=== PATIENT | female | born 2000 | race Hispanic/Latino ===

== ENCOUNTER 2021-02-20 20:01 | Emergency (ER) | payer OTHER ==
--- OUTSIDE RECORDS SUMMARY | 2021-02-20 20:04 | XMS REPORT | Continuity of Care Document ---
:2000 Author Organization [facility] t Address Formerly [facility] [place] [id number] Care Team Providers Name Role Phone Unavailable Unavailable Unavailable Problems This patient has no known problems. Allergies, Adverse Reactions, Alerts This patient has no known allergies or adverse reactions. Social History Smoking Status Start Date Stop Date Source Never Smoker [facility] Medications This patient has no known medications. Vital Signs Vital Name Observation Time Observation Value Comments Source Body Weight 2019-11-03 00:00:00 134 [lb_av] [facility] BP Diastolic 2019-11-03 00:00:00 80 mm[Hg] [facility] Height 2019-11-03 00:00:00 62 [in_i] [facility] BMI (Body Mass 2019-11-03 00:00:00 24.5 kg/m2 [facility]) [facility] BP Systolic 2019-11-03 00:00:00 104 mm[Hg] [facility] Procedures This patient has no known procedures. Plan of Care Planned Activity Planned Date Details Comments Source Diagnostic Test 2019-11-03 CBC w/ auto diff [facility] Pending 00:00:00 [code = CBC w/ Health Outrea ch auto diff] Program Diagnostic Test 2019-11-03 ferritin, serum or [facility] Pending 00:00:00 plasma [code = Health Outrea ch ferritin, serum or Program plasma] Diagnostic Test 2019-11-03 iron + total [facility] Pending 00:00:00 iron-binding Health Outreach capacity (TIBC), Program serum [code = iron + total iron-binding capacity (TIBC), serum] Diagnostic Test 2019-11-03 CMP, serum or [facility] Pending 00:00:00 plasma [code = Health Outrea ch CMP, serum or Program plasma] Diagnostic Test 2019-11-03 lipid panel, serum [facility] Pending 00:00:00 [code = lipid Health Outreac h panel, serum] Program Diagnostic Test 2019-11-03 TSH + free T4, [facility] Pending 00:00:00 serum [code = TSH Health Out reach + free T4, serum] Program Encounters Start End Encounter Admission Attending Care Care Encounter Source Date/Time Date/Time Type Type Clinicians Facility Department ID 2019-11-03 2019-11-03 Stephon GRANT [place] - [id number] [facility] 00:00:00 00:00:00 Nick Paul [employer] CLERK: [facility] Yanely Castillo, [address] [id number] Progr am , Ph. Results This patient has no known results.
[2021-02-20 21:31] LABS: Absolute Lymphocytes (CBC) 1.1 K/uL (0.7-4.9); Basophils % 0.3 % (0-1.3); Hematocrit 32.7 % (36.0-45.0); Lymphocytes % 9.3 % (15.3-44.8); MPV 9.5 fL (7.6-11.3); RBC Red Blood Cell Count 3.96 M/uL (3.86-4.86)
--- NOTE | 2021-02-20 21:39 | RAD REPORT ---
EXAM DESCRIPTION: [facility] Single View02/20/2021 9:22 pm CLINICAL HISTORY: Shortness of breath COMPARISON: none FINDINGS: The lungs appear clear of acute infiltrate. The heart is normal size IMPRESSION: No acute abnormalities displayed
[2021-02-20] MEDS ORDERED: NA CHLORIDE 0.9% 1,000 ML ONE (21:42)
[2021-02-20 22:04] LABS: ALT/SGPT 20 U/L (12-78); AST/SGOT 14 U/L (15-37); Albumin 3.7 g/dL (3.4-5.0); Alkaline Phosphatase 77 U/L (45-117); BUN Blood Urea Nitrogen 11 mg/dL (7-18); Bicarbonate 27 mmol/L (21-32); Bilirubin Direct 0.1 mg/dL (0-0.2); Bilirubin Total 0.2 mg/dL (0.2-1.0); Glucose Level 106 mg/dL (74-106); Magnesium 2.1 mg/dL (1.8-2.4); Potassium 3.7 mmol/L (3.5-5.1); Protein, Total 8.2 g/dL (6.4-8.2); Sodium Level 141 mmol/L (136-145); Troponin I < 0.02 ng/mL (0.0-0.045)
[2021-02-20] MEDS ORDERED: PROPRANOLOL HCL 10 MG TAB ONE (22:43)
[2021-02-20] MEDS ORDERED: LORazepam 2 MG/ML VIAL ONE (23:35)
--- NOTE | 2021-02-20 23:52 | ER ---
Nurse's Notes [facility] Name: Gloria Salamanca Age: 20 yrs Sex: Female : 2000 Arrival Date: 02/20/2021 Time: 20:05 Bed 19 Private MD: Diagnosis: Tachycardia, unspecified;Adverse effect of caffeine Presentation: 02/20 20:23 Chief complaint: Patient states: she drank a Red Bull at lunch then started having bb palpitations but they went away after an hour but 4 hours later they came back she is still having palpitations and is shaky. Coronavirus screen: At this time, the client does not indicate any symptoms associated with coronavirus-19. Ebola Screen: No symptoms or risks identified at this time. Initial Sepsis Screen: Does the patient meet any 2 criteria? No. Patient's initial sepsis screen is negative. Does the patient have a suspected source of infection? No. Patient's initial sepsis screen is negative. Risk Assessment: Do you want to hurt yourself or someone else? Patient reports no desire to harm self or others. Onset of symptoms was February 20, 2021. 20:23 Method Of Arrival: Ambulatory bb 20:23 Acuity: ONIEL 3 bb Triage Assessment: 20:25 General: Appears in no apparent distress. uncomfortable, Behavior is calm, cooperative. bb Pain: Denies pain. Cardiovascular: Heart tones S1 S2 present Capillary refill < 3 seconds Patient's skin is warm and dry. Rhythm is sinus tachycardia. Respiratory: Respiratory effort is even, unlabored, Respiratory pattern is regular. Derm: Skin is pink, warm \T\ dry. Musculoskeletal: Circulation, motion, and sensation intact. 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 - Social history:: Smoking status: Patient denies any tobacco usage or history of. Screenin:30 Abuse screen: Denies threats or abuse. Denies injuries from another. Nutritional wh screening: No deficits noted. Tuberculosis screening: No symptoms or risk factors identified. Fall Risk None identified. Assessment: 20:30 General: Appears in no apparent distress. Behavior is calm, cooperative, appropriate wh for age. Pain: Denies pain. Neuro: Level of Consciousness is awake, alert, obeys commands, Oriented to person, place, time, situation, Appropriate for age. Cardiovascular: Heart tones S1 S2 Rhythm is sinus tachycardia. Cardiovascular: Reports palpitations. Respiratory: Airway is patent Respiratory effort is even, unlabored, Respiratory pattern is regular, symmetrical, Breath sounds are clear bilaterally. GI: Abdomen is flat, non-distended. : No signs and/or symptoms were reported regarding the genitourinary system. EENT: No signs and/or symptoms were reported regarding the EENT system. Derm: Skin is intact, is healthy with good turgor, Skin is pink, warm \T\ dry. normal. Musculoskeletal: Circulation, motion, and sensation intact. 22:00 Reassessment: Patient appears in no apparent distress at this time. No changes from previously documented assessment. Patient and/or family updated on plan of care and expected duration. Pain level reassessed. Patient is alert, oriented x 3, equal unlabored respirations, skin warm/dry/pink. 23:30 Reassessment: Patient appears in no apparent distress at this time. Patient and/or family updated on plan of care and expected duration. Pain level reassessed. Patient is alert, oriented x 3, equal unlabored respirations, skin warm/dry/pink. Vital Signs: 20:23 BP 137 / 78; Pulse 132; Resp 16 S; Temp 98.4(O); Pulse Ox 99% on R/A; Weight 63.5 kg bb (R); Height 5 ft. 1 in. (154.94 cm) (R); Pain 0/10; 20:30 BP 123 / 77; Pulse 123; Resp 18; Pulse Ox 100% on R/A; wh 22:00 BP 124 / 79; Pulse 122; Resp 18; Pulse Ox 99% on R/A; wh 23:30 BP 126 / 76; Pulse 92; Resp 18; Pulse Ox 98% on R/A; wh 20:23 Body Mass Index 26.45 (63.50 kg, 154.94 cm) ED Course: 20:05 Patient arrived in ED. cf2 20:24 Triage completed. bb 20:25 Arm band placed on. bb 20:30 Patient has correct armband on for positive identification. Bed in low position. Call light in reach. Side rails up X 1. environmental monitoring specialist on. Pulse ox on. NIBP on. 20:34 Angelia Mcnair RN is Primary Nurse. 20:36 Jonathan Quintanilla PA is PHCP. jr8 20:36 Tuan Rodriguez MD is Attending Physician. [facility] 21:00 No provider procedures requiring assistance completed. Inserted saline lock: 20 gauge in right antecubital area, using aseptic technique. Blood collected. 21:22 XRAY Chest (1 view) In Process Unspecified. EDMO 02/21 00:03 IV discontinued, intact, bleeding controlled, No redness/swelling at site. Administered Medications: 02/20 21:29 Drug: NS 0.9% 1000 ml Route: IV; Rate: 1000 ml; Site: right antecubital; 22:36 Drug: Propranolol 10 mg Route: PO; 23:40 Follow up: Response: No adverse reaction 23:20 Drug: Ativan (LORazepam) 0.5 mg {Note: RASS 0.} Route: IVP; Site: right antecubital; 23:40 Follow up: Response: No adverse reaction; RASS: Alert and Calm (0) Outcome: 23:52 Discharge ordered by . [facility] 02/21 00:03 Discharged to home ambulatory, with family. Condition: stable Discharge instructions given to patient, family, Instructed on discharge instructions, follow up and referral plans. POC Demonstrated understanding of instructions, follow-up care, POC 00:04 Patient left the ED. Signatures: Dispatcher [employer] [facility] Kathie Landry RN RN Jonathan Quintanilla PA PA jr Angelia Mcnair RN RN Terese Sabillon cf2
--- NOTE | 2021-02-20 23:52 | EDPHYS ---
Physician Documentation [facility] Name: Gloria Salamanca Age: 20 yrs Sex: Female : 2000 Arrival Date: 02/20/2021 Time: 20:05 Bed 19 Private MD: ED Physician Tuan Rodriguez HPI: 02/20 22:14 This 20 yrs old Female presents to ER via Ambulatory with complaints of jr8 Palpitations, FEELS SHAKEY. 22:14 The patient presents with a history of heart racing. Context: The symptoms occur at jr8 rest. Onset: The symptoms/episode began/occurred suddenly, today. Duration: The patient or guardian reports a single episode, that is still ongoing. Modifying factors: The symptoms are aggravated by nothing. The symptoms are alleviated by nothing. Associated signs and symptoms: The patient has no apparent associated signs or symptoms. Severity of symptoms: At their worst the symptoms were mild in the emergency department the symptoms are unchanged. The patient has not experienced similar symptoms in the past. The patient has not recently seen a physician. Patient stated that she drank a redbull at lunch today. About 30 minutes after drinking the beverage she started to feel heart race. Stated that it continued to do so for a while then went a way. Now back and not going away . 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 - Social history:: Smoking status: Patient denies any tobacco usage or history of. ROS: 22:14 Eyes: Negative for injury, pain, redness, and discharge, ENT: Negative for injury, jr8 pain, and discharge, Neck: Negative for injury, pain, and swelling, Respiratory: Negative for shortness of breath, cough, wheezing, and pleuritic chest pain, Abdomen/GI: Negative for abdominal pain, nausea, vomiting, diarrhea, and constipation, Back: Negative for injury and pain, MS/Extremity: Negative for injury and deformity, Skin: Negative for injury, rash, and discoloration, Neuro: Negative for headache, weakness, numbness, tingling, and seizure. 22:14 Cardiovascular: Positive for palpitations, Negative for chest pain, edema, orthopnea, paroxysmal nocturnal dyspnea. Exam: 22:14 Constitutional: This is a well developed, well nourished patient who is awake, alert, jr8 and in no acute distress. Neck: Trachea midline, no thyromegaly or masses palpated, and no cervical lymphadenopathy. Supple, full range of motion without nuchal rigidity, or vertebral point tenderness. No Meningismus. Chest/axilla: Normal chest wall appearance and motion. Nontender with no deformity. No lesions are appreciated. Respiratory: Lungs have equal breath sounds bilaterally, clear to auscultation and percussion. No rales, rhonchi or wheezes noted. No increased work of breathing, no retractions or nasal flaring. Abdomen/GI: Soft, non-tender, with normal bowel sounds. No distension or tympany. No guarding or rebound. No evidence of tenderness throughout. Skin: Warm, dry with normal turgor. Normal color with no rashes, no lesions, and no evidence of cellulitis. MS/ Extremity: Pulses equal, no cyanosis. Neurovascular intact. Full, normal range of motion. Neuro: Awake and alert, GCS 15, oriented to person, place, time, and situation. Motor strength 5/5 in all extremities. Sensory grossly intact. 22:14 Cardiovascular: Rate: tachycardic, Rhythm: regular, Pulses: Pulses are 2+ in right radial artery and left radial artery. Heart sounds: normal, normal S1and S2, no S3 or S4, no murmur, no rub, no gallop, Edema: is not appreciated, JVD: is not appreciated. Vital Signs: 20:23 BP 137 / 78; Pulse 132; Resp 16 S; Temp 98.4(O); Pulse Ox 99% on R/A; Weight 63.5 kg bb (R); Height 5 ft. 1 in. (154.94 cm) (R); Pain 0/10; 20:30 BP 123 / 77; Pulse 123; Resp 18; Pulse Ox 100% on R/A; wh 22:00 BP 124 / 79; Pulse 122; Resp 18; Pulse Ox 99% on R/A; wh 23:30 BP 126 / 76; Pulse 92; Resp 18; Pulse Ox 98% on R/A; wh 20:23 Body Mass Index 26.45 (63.50 kg, 154.94 cm) bb MDM: 20:37 Patient medically screened. [facility] 23:49 Data reviewed: vital signs, nurses notes, lab test result(s), EKG, radiologic studies, [facility] plain films. Data interpreted: Pulse oximetry: on room air is 98 %. Interpretation: normal. Counseling: I had a detailed discussion with the patient and/or guardian regarding: the historical points, exam findings, and any diagnostic results supporting the discharge/admit diagnosis, lab results, radiology results, the need for outpatient follow up, a family practitioner, to return to the emergency department if symptoms worsen or persist or if there are any questions or concerns that arise at home. Response to treatment: the patient's symptoms have resolved after treatment, patient is well hydrated. ED course: VS normalized. Labs without acute findings. EKG stable. Long discussion about energy drinks. Patient understands and will follow up. 02/20 20:38 Order name: Basic Metabolic Panel [facility] 02/20 20:38 Order name: CBC with Diff; Complete Time: 21:45 8 02/20 20:38 Order name: LFT's; Complete Time: 22:10 8 02/20 20:38 Order name: Magnesium; Complete Time: 22:10 [facility] 02/20 20:38 Order name: Basic Metabolic Panel; Complete Time: 22:10 EDMS 02/20 20:37 Order name: EKG - Nurse/Tech; Complete Time: 21:20 02/20 20:37 Order name: EKG; Complete Time: 20:37 [facility] 02/20 20:38 Order name: XRAY Chest (1 view); Complete Time: 21:45 8 02/20 20:38 Order name: Cardiac monitoring; Complete Time: 21:19 02/20 21:47 Order name: Troponin I; Complete Time: 22:10 EDMS 02/20 20:38 Order name: IV Saline Lock; Complete Time: 21:20 02/20 20:38 Order name: Labs collected and sent; Complete Time: 21:20 02/20 20:38 Order name: O2 Per Protocol; Complete Time: 21:20 02/20 20:38 Order name: O2 Sat Monitoring; Complete Time: 21:20 02/20 22:13 Order name: EKG - Nurse/Tech; Complete Time: 23:40 jr8 Administered Medications: 21:29 Drug: NS 0.9% 1000 ml Route: IV; Rate: 1000 ml; Site: right antecubital; 22:36 Drug: Propranolol 10 mg Route: PO; 23:40 Follow up: Response: No adverse reaction 23:20 Drug: Ativan (LORazepam) 0.5 mg {Note: RASS 0.} Route: IVP; Site: right antecubital; 23:40 Follow up: Response: No adverse reaction; RASS: Alert and Calm (0) Disposition: 02/21 07:12 Co-signature as Attending Physician, Tuan Rodriguez MD I agree with the assessment and asbina plan of care. Disposition: 02/20/21 23:52 Discharged to Home. Impression: Tachycardia, unspecified, Adverse effect of caffeine. - Condition is Stable. - Discharge Instructions: Sinus Tachycardia. - Medication Reconciliation Form, Thank You Letter, Antibiotic Education, Prescription Opioid Use form. - Follow up: Private Physician; When: 2 - 3 days; Reason: Recheck today's complaints, Continuance of care, Re-evaluation by your physician. - Problem is new. - Symptoms have improved. Signatures: Dispatcher [employer] [facility] Tuan Rodriguez MD MD cha Ballard, Brenda, RN RN Jonathan Vernon PA PA jr Angelia Mcnair RN RN Corrections: (The following items were deleted from the chart) 02/20 21:47 21:22 TROPONIN (EMERG DEPT USE ONLY)+C.LAB.BRZ ordered. [facility] 02/21 00:04 02/20 23:52 02/20/2021 23:52 Discharged to Home. Impression: Tachycardia, unspecified; Adverse effect of caffeine. Condition is Stable. Forms are Medication Reconciliation Form, Thank You Letter, Antibiotic Education, Prescription Opioid Use. Follow up: Private Physician; When: 2 - 3 days; Reason: Recheck today's complaints, Continuance of care, Re-evaluation by your physician. Problem is new. Symptoms have improved. jr8
[2021-02-21 00:37] VITALS: BP 126/76; O2SAT 98
== END 2021-02-21 00:04 | disposition home or self-care (01) ==
LOC: ER 20:01
DX: T43.611A Poisoning by caffeine, accidental (unintentional), initial encounter (principal); R00.0 Tachycardia, unspecified
CPT/HCPCS: 93005 ×2; 85025; 80048; 36415; 83735; 80076; 84484; 71045; 96374; 99284; J7030